=== PATIENT | female | born 1960 | race Hispanic/Latino ===

== ENCOUNTER 2019-03-08 11:31 | Emergency (ER) | payer BC ==
[2019-03-08 12:16] VITALS: BMI 26.8
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
[2019-03-08 12:25] VITALS: RESP 18
[2019-03-08 13:02] LABS: BASO # 0.01 K/mm3 (0.0-2.0); BASO % 0.1 % (0.0-3.0); EOS # 0.1 (0.0-0.7); EOS % 1.5 % (1.5-5.0); HEMOGLOBIN 15.9 g/dL (12.0-16.0); LYMPH # 2.2 (1.2-3.4); LYMPH % 23.7 % (22.0-35.0); MEAN CORPUSCULAR HEMOGLOBIN 29.9 pg (25.0-35.0); MEAN CORPUSCULAR HGB CONC 34.3 g/dl (31.0-37.0); MEAN PLATELET VOLUME 9.5 fl (7.0-11.0); MONO # 0.6 (0.1-0.6); MONO % 6.5 % (1.0-6.0); RBC 5.32 10^6/uL (3.5-6.1); RED CELL DISTRIBUTION WIDTH 12.9 % (11.5-14.5); WHITE BLOOD COUNT 9.3 10^3/uL (4.5-11.0)
[2019-03-08 13:12] LABS: INR 1.12; PARTIAL THROMBOPLASTIN TIME 37.4 Seconds (26.9-38.3); PROTHROMBIN TIME 12.7 SECONDS (9.4-12.5)
[2019-03-08] MEDS ORDERED: Sodium Chloride 0.9% 500 ML IV STA (13:16)
[2019-03-08 13:18] LABS: ALB/GLOB RATIO 1.2 (1.1-1.8); ALBUMIN 4.3 g/dL (3.0-4.8); ALT/SGPT 42 U/L (7-56); AST/SGOT 40 U/L (14-36); BILIRUBIN,DIRECT 0.2 mg/dL (0.0-0.4); BLOOD UREA NITROGEN 12 mg/dL (7-21); CALCIUM 9.6 mg/dL (8.4-10.5); GFR NON-AFRICAN AMERICAN > 60; LIPASE 38 U/L (23-300)
[2019-03-08 13:31] LABS: TROPONIN I < 0.01 ng/mL
[2019-03-08] MEDS ORDERED: Iohexol 350 MG/100 ML VIAL ONE (13:46)
--- NOTE | 2019-03-08 13:54 | RAD ---
Date of service: 03/08/2019 HISTORY: abd pain COMPARISON: No prior. TECHNIQUE: 1 view obtained. FINDINGS: LUNGS: No active pulmonary disease. PLEURA: No significant pleural effusion identified, no pneumothorax apparent. CARDIOVASCULAR: No aortic atherosclerotic calcification present. Normal cardiac size. No pulmonary vascular congestion. OSSEOUS STRUCTURES: No significant abnormalities. VISUALIZED UPPER ABDOMEN: Normal. OTHER FINDINGS: None. IMPRESSION: No active disease.
--- NOTE | 2019-03-08 15:16 | CT ---
Date of service: 03/08/2019 PROCEDURE: CT Abdomen and Pelvis with contrast HISTORY: upper abd pain s/p endoscopy COMPARISON: None. TECHNIQUE: Contrast dose: 100 mL of Omnipaque 350 intravenously. Axial and reformatted coronal and sagittal CT images of the abdomen and pelvis were obtained after IV contrast administration. Radiation dose: Total exam DLP = 1033.26 mGy-cm. This CT exam was performed using one or more of the following dose reduction techniques: Automated exposure control, adjustment of the mA and/or kV according to patient size, and/or use of iterative reconstruction technique. FINDINGS: LOWER THORAX: No evidence of acute pathology. LIVER: Mild hepatomegaly with findings suggestive of [id number] hepatic steatosis. GALLBLADDER AND BILE DUCTS: Status post cholecystectomy. PANCREAS: Unremarkable. No gross lesion or ductal dilatation. SPLEEN: There is heterogeneous low-attenuation lesion in the spleen measures 4 centimeter contains foci of calcification. Findings are nonspecific and the differential consideration includes hematoma versus hemangioma. The spleen is otherwise normal in size. ADRENALS: Unremarkable. No mass. KIDNEYS AND URETERS: Unremarkable. No hydronephrosis. No solid mass. VASCULATURE: Unremarkable. No aortic aneurysm. Foci of atherosclerotic calcification noted in the abdominal aorta and iliac arteries. BOWEL: Unremarkable. No obstruction. No gross mural thickening. Colonic diverticulosis noted without evidence of diverticulitis. APPENDIX: There is no evidence of appendicitis. PERITONEUM: Unremarkable. No free fluid. No free air. LYMPH NODES: Unremarkable. No enlarged lymph nodes. BLADDER: Unremarkable. REPRODUCTIVE: Unremarkable. BONES: No acute fracture. OTHER FINDINGS: None. IMPRESSION: No evidence of acute pathology in the abdomen and pelvis. No evidence of free fluid or free air in the abdomen and pelvis. 4 millimeter low-attenuation heterogeneous lesion in the spleen incidentally noted may represent benign lesions such as old hematoma or hemangioma. If clinically warranted further assessment by ultrasound may be obtained. Status post cholecystectomy. No CT evidence of pancreatitis or appendicitis.
--- NOTE | 2019-03-08 16:46 | CARD ---
APPROVED REPORT Date of service: 03/08/2019 EKG Measurement Heart [id number] <Conclusion> Normal sinus rhythm Left axis deviation Minimal voltage criteria for LVH, may be normal variant Anteroseptal infarct, age undetermined Abnormal ECG
[2019-03-08 18:03] LABS: PH,URINE 5.5 (4.7-8.0); URINE APPEARANCE CLEAR (CLEAR); URINE BILIRUBIN NEGATIVE (NEGATIVE); URINE BLOOD NEGATIVE (NEGATIVE); URINE COLOR YELLOW (YELLOW); URINE GLUCOSE (UA) NEGATIVE (NEGATIVE); URINE LEUKOCYTE ESTERASE NEGATIVE Leu/uL (NEGATIVE); URINE PROTEIN NEGATIVE mg/dL (<30 mg/dL); URINE UROBILINOGEN 0.2 E.U./dL (<1 E.U./dL)
--- NOTE | 2019-03-08 18:23 | NM ---
Date of service: 03/08/2019 COMPARISON: March 08, 2019. Single-view chest. TECHNIQUE: 40.6 mCi technetium 99-m DTPA aerosol. 5.6 mCI technetium 99-m MAA administered intravenously. FINDINGS: VENTILATION COMPONENT: Mildly heterogeneous ventilation. Retention of radionuclide in the tracheobronchial tree and ingestion of radionuclide in the stomach, incidental findings PERFUSION COMPONENT: Normal. IMPRESSION: Negative ventilation perfusion scan for pulmonary embolism.
[2019-03-08 18:43] VITALS: O2SAT 98
[2019-03-08 18:50] VITALS: BP 148/88; TEMP 98.3
[2019-03-08 18:51] VITALS: PULSE 72
== END 2019-03-08 19:00 | disposition home or self-care (01) ==
LOC: ED 11:31
DX: R10.9 Unspecified abdominal pain (principal); R06.00 Dyspnea, unspecified
CPT/HCPCS: 71045; 74177; 78582; 80053; 81003; 82248; 82550; 83615; 83690; 83735; 83880; 84484; 85025; 85378; 85610; 85730; 93005; 96374; 99283; C9113; J7040; Q9967